=== PATIENT | female | born 1995 | race American Indian/Alaskan Native ===

== ENCOUNTER 2018-08-14 13:46 | Inpatient (IN) | payer OTHER ==
[~2018-08-14] VITALS: Ht 154.9 cm; Wt 83.0 kg
[2018-08-14] MEDS ORDERED: MAXFE CAPLET1 EACH PO (14:31)
[2018-08-14] MEDS ORDERED: PRENATAL 19 TA1 EAC1 PO (14:31)
== END 2018-08-17 16:52 | disposition home or self-care (01) | DRG 778 ==
LOC: OBS/DEL 13:46 → LDR 19:23 → OB/GYN 19:23
PROC: BY4FZZZ Ultrasonography of Third Trimester, Single Fetus (ICD-10-PCS; principal; 2018-08-14)
PROC: 4A1HXCZ Monitoring of Products of Conception, Cardiac Rate, External Approach (ICD-10-PCS; 2018-08-14)
DX: O60.03 Preterm labor without delivery, third trimester (principal); O20.0 Threatened abortion

== ENCOUNTER 2018-08-24 15:30 | Inpatient (IN) | payer OTHER ==
[~2018-08-24] VITALS: Ht 154.9 cm; Wt 83.0 kg
[~2018-08-24 15:30] MED LIST: MAXFE CAPLET1 EACH PO; PRENATAL 19 TA1 EAC1 PO
== END 2018-09-05 15:35 | DRG 807 ==
LOC: OB/GYN 09-02 20:24 → LDR 09-02 20:24 → OB/GYN 09-03 21:33
PROC: 10E0XZZ Delivery of Products of Conception, External Approach (ICD-10-PCS; principal; 2018-09-03)
PROC: 0KQM0ZZ Repair Perineum Muscle, Open Approach (ICD-10-PCS; 2018-09-03)
PROC: 10907ZC Drainage of Amniotic Fluid, Therapeutic from Products of Conception, Via Natural or Artificial Opening (ICD-10-PCS; 2018-09-03)
PROC: 3E033VJ Introduction of Other Hormone into Peripheral Vein, Percutaneous Approach (ICD-10-PCS; 2018-09-03)
PROC: 4A033R1 Measurement of Arterial Saturation, Peripheral, Percutaneous Approach (ICD-10-PCS; 2018-09-03)
PROC: 4A1HXCZ Monitoring of Products of Conception, Cardiac Rate, External Approach (ICD-10-PCS; 2018-09-03)
DX: O80 Encounter for full-term uncomplicated delivery (principal); O70.1 Second degree perineal laceration during delivery; Z37.0 Single live birth; Z3A.38 38 weeks gestation of pregnancy

== ENCOUNTER → 2018-09-01 | Outpatient (CLI) | payer OTHER | END | disposition still patient (30) | LOC: OBS/DEL 21:14 | DX: O47.1 False labor at or after 37 completed weeks of gestation (principal); Z34.03 Encounter for supervision of normal first pregnancy, third trimester ==